=== PATIENT | male | born 1970 | race African-American/Black ===

== ENCOUNTER 2025-02-27 18:14 | Inpatient (IN) | payer MEDICAID, MEDICARE ==
[~2025-02-27] VITALS: Ht 162.6 cm; Wt 91.7 kg
[~2025-02-27 18:14] MED LIST: ASPI-1079 PO; CLOP-31 PO; COR3 PO; FURO-151 PO; LISI2.5T47 PO; POTA20LI52 PO
[2025-02-27 18:53] LABS: BASOPHILS % 0.4 % (0.0-2.0); EOSINOPHILS % 1.6 % (0.0-5.0); HEMATOCRIT. 43.7 % (42.0-52.0); HEMOGLOBIN. 14.1 g/dL (14.0-18.0); LYMPHOCYTES % 32.2 % (20.0-50.0); MEAN CORPUSCULAR HEMOGLOBIN 29.8 pg (28.0-32.0); MEAN CORPUSCULAR HGB CONC 32.3 g/dL (31.0-37.0); MEAN CORPUSCULAR VOLUME 92.4 fL (80.0-94.0); MEAN PLATELET VOLUME 9.1 fl (7.4-10.4); MONOCYTES % 9.5 % (2.0-8.0); NEUTROPHILS % 56.3 % (40.0-76.0); PLATELET 288 x1000/uL (130-400); RED BLOOD CELL COUNT 4.73 mill/uL (4.7-6.1); RED CELL DISTRIBUTION WIDTH 12.9 % (11.6-14.6); WHITE BLOOD COUNT 10.4 x1000/uL (4.5-11.0)
[2025-02-27 19:07] LABS: CHLORIDE 100 mEq/L (98-107); POTASSIUM 4.2 mEq/L (3.5-5.1); SODIUM 138 mEq/L (136-145)
[2025-02-27 19:08] LABS: CARBON DIOXIDE 31 mEq/L (21-32)
[2025-02-27 19:09] LABS: CALCIUM 9.6 mg/dL (8.7-10.4)
[2025-02-27 19:13] LABS: CREATININE 1.1 mg/dL (0.6-1.3)
[2025-02-27 19:14] LABS: UREA NITROGEN BLOOD 11 mg/dL (9-23)
[2025-02-27 19:15] LABS: TROPONIN I HIGH SENSITIVITY 8 ng/L (3.0-53)
[2025-02-27 19:24] LABS: GLUCOSE 384 mg/dL (70-105)
[2025-02-27 19:53] LABS: BG DEOXYHEMOGLOBIN 11.5 % (0.0-5.0)
[2025-02-27 20:12] LABS: BETA HYDROXYBUTYRATE 0.1 mMol/L (0.0-0.3)
[2025-02-28] MEDS ORDERED: DEXTROSE 50% WATER 50ML SYRINGE IV PRN ×2 (01:00→19:00)
[2025-02-28 01:27] VITALS: BP 121/66; PULSE 69; RESP 18; TEMP 36.6
[2025-02-28] MEDS ORDERED: GUAIFENESIN 200MG/10ML SUGAR FREE UDC PO PRN (01:30)
[2025-02-28] MEDS ORDERED: IPRATROPIUM/ALBUTEROL 0.5-3(2.5)MG/3ML NEB HHN PRN (01:30)
[2025-02-28] MEDS ORDERED: KETOROLAC 15MG/ML VIAL IV PRN (01:30)
[2025-02-28] MEDS ORDERED: ACETAMINOPHEN 325MG TABLET PO PRN (01:30)
[2025-02-28] MEDS ORDERED: CLONIDINE 0.1MG TABLET PO PRN (01:30)
[2025-02-28] MEDS ORDERED: ONDANSETRON HCL 4MG/2ML INJ IV PRN (01:30)
[2025-02-28] MEDS ORDERED: DOCUSATE SODIUM 100MG CAPSULE PO PRN (01:30)
[2025-02-28] MEDS ORDERED: NITROGLYCERIN 0.4MG TABLET SL SL PRN (01:30)
[2025-02-28] MEDS ORDERED: MAGNESIUM/ALUMINUM HYDROXIDE/SIMETHICONE 30ML UDC PO PRN (01:30)
[2025-02-28] MEDS: KETOROLAC 15MG/ML VIAL IV NR (02:33)
[2025-02-28] MEDS: MULTIVITAMINS,THER W-MINERALS TABLET PO SCH (02:33)
[2025-02-28 06:30] LABS: TROPONIN I HIGH SENSITIVITY 7 ng/L (3.0-53)
[2025-02-28 06:36] LABS: CREATINE KINASE 167 IU/L (46-171)
[2025-02-28 06:38] LABS: PHOSPHORUS 2.7 mg/dL (2.5-4.9)
[2025-02-28] MEDS: BLOOD SUGAR DIAGNOSTIC STRIP TEST SCH (07:01)
[2025-02-28] MEDS: INSULIN LISPRO 100 UNITS/ML SUBCUT SCH ×2 (07:06→11:45)
[2025-02-28 08:00] VITALS: BP_SYST 125; BP_SYST 132; BP_DIAS 81; BP_DIAS 86; PULSE 71; PULSE 72; RESP 18; TEMP 36.4; TEMP 36.7; O2SAT 98; O2SAT 99
[2025-02-28] MEDS: ASPIRIN 81MG EC TABLET PO SCH (09:24)
[2025-02-28] MEDS: ENOXAPARIN 100MG/ML SYR SUBCUT SCH (10:29)
[2025-02-28 12:00] VITALS: BP 114/74; PULSE 79; RESP 18; TEMP 36.3; O2SAT 99
[2025-02-28 13:17] LABS: *AMPHETAMINES SCREEN URINE NEGATIVE (NEGATIVE); *BARBITURATES SCREEN URINE NEGATIVE (NEGATIVE); *BENZODIAZEPINES SCREEN URINE NEGATIVE (NEGATIVE); *COCAINE SCREEN URINE NEGATIVE (NEGATIVE); METHADONE URINE SCREEN NEGATIVE (NEGATIVE)
[2025-02-28 13:18] LABS: CANNABINOID URINE SCREEN NEGATIVE (NEGATIVE); ECSTASY MDMA SCREEN URINE NEGATIVE (NEGATIVE); OPIATES URINE SCREEN NEGATIVE (NEGATIVE); PHENCYCLIDINE URINE SCREEN NEGATIVE (NEGATIVE)
[2025-02-28 14:18] LABS: TROPONIN I HIGH SENSITIVITY 7 ng/L (3.0-53)
[2025-02-28 14:20] LABS: CREATINE KINASE 145 IU/L (46-171)
[2025-02-28 16:00] VITALS: BP 113/80; PULSE 73; RESP 18; TEMP 36.3; O2SAT 100
[2025-02-28] MEDS: ACETAMINOPHEN 325MG TABLET PO PRN (17:28)
[2025-02-28 20:00] VITALS: BP 125/81; PULSE 72; RESP 18; TEMP 36.4; O2SAT 99
[2025-02-28] MEDS ORDERED: BLOOD SUGAR DIAGNOSTIC STRIP TEST SCH (21:00)
[2025-02-28] MEDS: FAMOTIDINE 20MG TABLET PO SCH (22:18)
[2025-02-28] MEDS: ATORVASTATIN CALCIUM 10MG TABLET PO SCH (22:18)
[2025-02-28] MEDS: INSULIN GLARGINE 100 UNITS/ML SUBCUT SCH (22:24)
[2025-03-01] VITALS: BP 114/70; PULSE 71; RESP 18; TEMP 36.2; O2SAT 99
[2025-03-01 04:00] VITALS: BP 127/83; PULSE 76; RESP 20; TEMP 36.4; O2SAT 98
[2025-03-01] MEDS: ENOXAPARIN 40MG/0.4ML SYR SUBCUT SCH (09:06)
[2025-03-01 09:52] VITALS: BP 127/82; PULSE 76; RESP 19; TEMP 36.5; O2SAT 99
[2025-03-01 12:00] VITALS: BP 115/79; PULSE 40; RESP 17; TEMP 36.8; O2SAT 96
[2025-03-01] MEDS ORDERED: ATOR40TA70 MT (12:28)
[2025-03-01] MEDS ORDERED: ASPI-1497 MT (12:28)
[2025-03-01 16:00] VITALS: BP 141/71; PULSE 75; RESP 18; TEMP 36.6; O2SAT 98
[2025-03-01 18:19] VITALS: BP 141/71; PULSE 75; TEMP 97.8; O2SAT 98
== END 2025-03-01 19:45 | disposition home or self-care (01) | DRG 198 ==
LOC: EDBD 18:14 → ER 18:14 → 5WST 23:32
PROVIDERS: ADMIT Internal Medicine; ATTEND Internal Medicine
DX: I20.9 Angina pectoris, unspecified (principal); E11.65 Type 2 diabetes mellitus with hyperglycemia; E66.811 Obesity, class 1; I48.0 Paroxysmal atrial fibrillation; M54.2 Cervicalgia; I10 Essential (primary) hypertension; Z79.82 Long term (current) use of aspirin; Z83.3 Family history of diabetes mellitus; Z68.34 Body mass index [BMI] 34.0-34.9, adult
CPT/HCPCS: 36415; 71045; 80048; 80305; 82010; 82375; 82550; 82803; 82962; 83036; 83735; 83930; 84100; 84484; 85025; 85651; 93005; 99291; J1650; J1815; J1885